=== PATIENT | female | born 1975 | race Caucasian/White ===

== ENCOUNTER 2021-11-24 00:44 | Emergency (ER) | payer BC ==
[~2021-11-24] VITALS: Ht 165.1 cm; Wt 106.0 kg
[2021-11-24] VITALS (17 sets, daily range): BP systolic 110–157; BP diastolic 58–98
[2021-11-24] MEDS ORDERED: PREDNISONE50 MG PO (02:00)
== END 2021-11-24 04:45 | disposition home or self-care (01) | DRG 607 ==
LOC: ED 00:44 → EDBD 00:44 → ED 01:15
DX: L50.0 Allergic urticaria (principal); T39.395A Adverse effect of other nonsteroidal anti-inflammatory drugs [NSAID], initial encounter; F17.210 Nicotine dependence, cigarettes, uncomplicated